=== PATIENT | male | born 1950 | race Caucasian/White ===

== ENCOUNTER 2020-01-08 11:07 | Day surgery (SDC) | payer BC, MEDICARE ==
[2020-01-05 13:19] VITALS: BMI 22.6
[~2020-01-08 11:07] MED LIST: LACTATED RINGERS 1,000 ML IV SCH; LIDOCAINE 1% 20 ML VIAL (10MG/ML) FOR IV START INTRADERMA PRN
[2020-01-08 11:25] VITALS: TEMP 97.8
[2020-01-08] MEDS ORDERED: LACTATED RINGERS 1,000 ML IV ONE (11:25)
[2020-01-08] MEDS ORDERED: LIDOCAINE 1% INJ 10MG/ML (20 ML MDV) ONE (12:14)
[2020-01-08] MEDS ORDERED: PROPOFOL 10 MG/ML 20 ML VIAL IV ONE (12:14)
--- NOTE | 2020-01-08 12:50 | P.PCN ---
Date of Procedure: 01/08/20 Procedure(s) Performed: Brief history: Patient is a pleasant 69-year-old white female scheduled for an elective upper endoscopy as well as colonoscopy as a part of evaluation of intermittent dysphagia to solids for the last 1 year duration. He also has prior history of colon polyps as well as coloscopy was 5 years ago Procedure performed: Esophagogastroduodenoscopy with biopsy and dilation Colonoscopy with snare polypectomy Preoperative diagnosis: Intermittent dysphagia to solids History of colon polyps Anesthesia: [facility] [place] Procedure: After informed consent was obtained from the patient was brought into the endoscopy unit and IV sedation was administered by anesthesia under continuous monitoring. Initially upper endoscopy was done. The Olympus GF 160 video endoscope was inserted inserted into the mouth and esophagus intubated without any difficulty and was gradually advanced into the stomach and duodenum and carefully examined. The bulb and second part of the duodenum appeared normal. The scope was then withdrawn into the stomach adequately insufflated with air and upon careful examination the antrum had mild gastritis and biopsies were done from this area body, cardia and fundus appeared normal. The scope was then withdrawn into the esophagus. The GE junction was located at 40 cm to the incisors. There was a distal esophageal Schatzki's ring identified and 5 which was dilated using 12-15 mm TTS balloon for 90 seconds in a sequential fashion. Also there was one superficial erosion at the GE junction consistent with LA grade A reflux esophagitis. Rest of the esophagus appeared normal. Patient tolerated the procedure well. At this time the patient continued to remain sedation. Initial digital rectal examination was normal. Olympus CF 160 video colonoscope was then inserted into the rectum and gradually advanced to the cecum without any difficulty. Careful examination was performed as the scope was gradually being withdrawn. The prep was excellent. The cecum, ascending colon appeared normal. In the hepatic flexure there was a 7-8 mm broad-based polyp that was removed by snare polypectomy.rest of the transverse colon, descending colon, sigmoid colon and rectum appeared normal. Retroflexion was performed in the rectum and grade 2 internal hemorrhoids were noted. Patient tolerated the procedure well. Impression: 1. Upper endoscopy revealed distal esophageal Schatzki's ring status post balloon dilation using 12-15 mm TTS balloon and mild antral gastritis. 1 visualization the GE junction consistent with LA grade a reflux esophagitis 2. Colonoscopy revealed 7-8 mm broad-based hepatic flexure polyp status post polypectomy and grade 2 internal hemorrhoids Recommendations: Findings of this examination were discussed with the patient as well as his family. He was advised to follow with the biopsy results. He will start on Prilosec 20 mg daily and follow antireflux measures. If the biopsy of the colon polyp shows an adenoma he can have a repeat colonoscopy in 5 years
[2020-01-08 12:51] VITALS: PULSE 84; RESP 16
[2020-01-08 13:03] VITALS: BP 139/79
== END 2020-01-08 13:22 | disposition home or self-care (01) ==
LOC: ORWHC2ENDO 11:07
PROVIDERS: ATTEND Internal Medicine Gastroenterology
DX: K22.2 Esophageal obstruction (principal); K22.10 Ulcer of esophagus without bleeding; K29.50 Unspecified chronic gastritis without bleeding; K21.9 Gastro-esophageal reflux disease without esophagitis; Z12.11 Encounter for screening for malignant neoplasm of colon; D12.3 Benign neoplasm of transverse colon; K64.1 Second degree hemorrhoids; J44.9 Chronic obstructive pulmonary disease, unspecified; Z86.010 Personal history of colon polyps; Z79.82 Long term (current) use of aspirin; Z79.899 Other long term (current) drug therapy; Z87.891 Personal history of nicotine dependence
CPT/HCPCS: 88305; 45385; 43239; 43249; J2001; J2704; C1726

== ENCOUNTER → 2021-01-10 | Outpatient (CLI) | payer MEDICARE | END | disposition home or self-care (01) | LOC: LABWHC1 09:28 | PROVIDERS: ATTEND Urology | DX: R97.20 Elevated prostate specific antigen [PSA] (principal) | CPT/HCPCS: 36415; 84153 ==

== ENCOUNTER → 2022-02-19 | Outpatient (CLI) | payer MEDICARE | END | disposition home or self-care (01) | LOC: LABWHC1 10:24 | PROVIDERS: ATTEND Urology | DX: R97.20 Elevated prostate specific antigen [PSA] (principal) | CPT/HCPCS: 36415; 84153 ==

== ENCOUNTER → 2022-05-29 | Outpatient (CLI) | payer MEDICARE ==
--- NOTE | 2022-05-30 06:48 | MR ---
EXAMINATION TYPE: MR Prostate wo/w con DATE OF EXAM: 05/29/2022 COMPARISON: None. INDICATION: Elevated PSA PSA: 7.1 ng/ml on February 19, 2022 Recent Biopsy and Date: November 22, 2017 Pathology Report (If Applicable): Random All benign TECHNIQUE: Examination was performed using a 3T MRI without an endorectal coil. Multiparametric imaging was perf ormed with T2 mutliplanar sequences, axial diffusion weighted imaging and dynamic contrast enhanced i maging, utilizing 7 mL intravenous Gadavist gadolinium contrast. FINDINGS: There is no clinically significant cancer identified. PROSTATE VOLUME: 4.4 cm SI x 4.1 cm AP x 5.7 cm LR Vol= 53.8 cc Predicted PSA equals 6.456. PSA DENSITY: 0.13 ng/ml/cc Enlarged prostate is present. Left peripheral zone shows areas of diminished signal on ADC mapping wi th perhaps mild increased signal on diffusion-weighted imaging. Areas of diminished T2 signal seen th roughout based apical segments involving mid and lateral portions. Central transitional zone is heter ogeneous without suspicious areas of restricted diffusion or indistinct T2 hypointense nodules. Dynam ic postcontrast imaging shows diffuse enhancement with areas of more heterogeneous and gradual enhanc ement and some areas of washout throughout the left prostate involving peripheral and the central tra nsitional zone. Poor visualization of seminal vesicles. No adjacent adenopathy. Urinary bladder shows adequate disten tion without suspicious wall thickening or trabeculation. Facet arthropathy in the lower lumbar spine. Small asymmetric left hip joint effusion. No pelvic flui d collection. No suspicious bowel dilatation. IMPRESSION: Enlarged prostate with borderline findings throughout the left prostatic lobe most suspic ious involving the peripheral zone. Highest Assessment Category: 3 MRI Stage: T0 N0 M0 based on review of pelvic images. False negative rates for MRI range from 5-20% depending on risk profile. Advise repeat random sampling with targeting of the left prostate lobe. Assessment Categories: 1 ? Very low (clinically significant cancer is highly unlikely to be present) 2 ? Low (clinically significant cancer is unlikely to be present) 3 ? Intermediate (the presence of clinically significant cancer is equivocal) 4 ? High (clinically significant cancer is likely to be present) 5 ? Very high (clinically significant cancer is highly likely to be present)
== END | disposition home or self-care (01) ==
LOC: RADMRIMAIN 07:58
PROVIDERS: ATTEND Urology
DX: N40.0 Benign prostatic hyperplasia without lower urinary tract symptoms (principal)
CPT/HCPCS: 72197; A9585

== ENCOUNTER → 2025-02-26 | Outpatient (CLI) | payer MEDICARE | END | disposition home or self-care (01) | LOC: LABWHC1 08:51 | PROVIDERS: ATTEND Urology | DX: R97.20 Elevated prostate specific antigen [PSA] (principal) | CPT/HCPCS: 36415; 84153 ==

== ENCOUNTER → 2025-05-03 | Outpatient (CLI) | payer MEDICARE | END | disposition home or self-care (01) | LOC: LABWHC1 07:16 | PROVIDERS: ATTEND Urology | DX: R97.20 Elevated prostate specific antigen [PSA] (principal) | CPT/HCPCS: 36415; 84153 ==